=== PATIENT | male | born 1945 | race Caucasian/White ===

== ENCOUNTER 2020-08-29 06:28 | Observation (INO) | payer MEDICARE, OTHER ==
[2020-08-26 16:03] LABS: BASOPHILS # (AUTO) 0.1 (0.0-0.1); BASOPHILS % 1.1 % (0.0-1.0); EOSINOPHILS # (AUTO) 0.1 (0.0-0.4); EOSINOPHILS % 2.5 % (0.0-6.0); HEMATOCRIT 36.6 % (38.2-49.6); HEMOGLOBIN 12.2 g/dL (14.0-18.0); LYMPHOCYTES # (AUTO) 1.8 (1.0-3.2); LYMPHOCYTES % 33.7 % (18.0-39.1); MEAN CORPUSCULAR HEMOGLOBIN 34.9 pg (28-32); MEAN CORPUSCULAR HGB CONC 33.3 g/dL (31-35); MEAN CORPUSCULAR VOLUME 104.6 fL (81-99); MONOCYTES # (AUTO) 0.9 (0.2-0.8); MONOCYTES % 16.9 % (4.4-11.3); NEUTROPHILS # (AUTO) 2.4 (2.1-6.9); PLATELET COUNT 244 x10e3/uL (140-360); RED CELL DISTRIBUTION WIDTH 13.1 % (11.7-14.4)
[2020-08-26 16:20] LABS: INR 0.9; PROTHROMBIN TIME 12.6 seconds (11.9-14.5)
[2020-08-26 16:21] LABS: PARTIAL THROMBOPLASTIN TIME 29.7 seconds (23.8-35.5)
[2020-08-26 16:27] LABS: ANION GAP 16.9 mmol/L (8-16); CALCIUM 9.5 mg/dL (8.4-10.2); CREATININE, SERUM 1.23 mg/dL (0.72-1.25); POTASSIUM 4.9 mmol/L (3.5-5.1)
[~2020-08-29] VITALS: Ht 170.2 cm; Wt 75.3 kg
[~2020-08-29 06:28] MED LIST: ALENDRONATE SOD70 MG PO; ALLOPURINOL100 MG PO; AMLODIPINE BESY10 MG PO; ATORVASTATIN CA20 MG PO; AVODART0.5 MG PO; BENICAR20 MG PO; CETIRIZINE HCL10 MG PO; FLUTICASONE PRO16 GM INH; GLIMEPIRIDE2 MG PO; GLUCOSE4 GM PO; MYRBETRIQ25 MG PO; NASACORT16.9 ML INH; NEXIUM20 MG PO; TRESIBA FL200 UNIT/1 SC; ZETIA10 MG PO; [UNRECOGNIZED DRUG - OTHER]
[2020-08-29] MEDS ORDERED: LIDOCAINE 1% W/EPINEPHRINE 20 ML VIAL ONE (06:48)
[2020-08-29] MEDS ORDERED: THROMBIN FOR SOLN 5,000 UNIT VIAL ONE (06:48)
[2020-08-29] MEDS ORDERED: VANCOMYCIN HCL 1 GM VIAL ONE (06:48)
[2020-08-29] MEDS ORDERED: VANCOMYCIN 300 ML IV ONE (07:16)
[2020-08-29] MEDS ORDERED: LIDOCAINE HCL (LTA) 4 ML SOLN ONE (07:22)
[2020-08-29] MEDS ORDERED: IBUPROFEN 800MG/ 200ML 200 ML IV ONE (07:22)
[2020-08-29] MEDS ORDERED: CLINDAMYCIN 600MG / 50ML 50 ML IV ONE (08:58)
[2020-08-29] MEDS ORDERED: SODIUM CHLORIDE NS PRN (10:30)
[2020-08-29] MEDS ORDERED: OXYCODONE/ACETAMINOPHEN 5-325 1 EACH TABLET PO PRN (10:30)
[2020-08-29] MEDS ORDERED: MORPHINE SULFATE 5 MG/ML VIAL IM PRN (10:30)
[2020-08-29] MEDS ORDERED: FLUTICASONE PROPIONATE NASAL SPRAY NS PRN (10:30)
[2020-08-29] MEDS ORDERED: TRIAMCINOLONE ACETONIDE NS PRN (10:30)
[2020-08-29] MEDS ORDERED: CEPACOL SORE THROAT LOZENGES PO PRN (10:30)
[2020-08-29] MEDS ORDERED: ONDANSETRON HCL INJ 2MG/ML 2ML 2 MG/ML VIAL IV PRN (10:30)
[2020-08-29] MEDS ORDERED: PROMETHAZINE HCL (IM) 25 MG/ML VIAL IM PRN (10:30)
[2020-08-29] MEDS ORDERED: ACETAMINOPHEN 325 MG TAB PO PRN (10:30)
[2020-08-29] MEDS ORDERED: MAGNESIUM/ALUMINUM/SIMETHICONE 30 ML UDC PO PRN (10:30)
[2020-08-29] MEDS ORDERED: SODIUM BICARBONATE NS PRN (10:30)
[2020-08-29 11:59] VITALS: BP 125/77
[2020-08-29] MEDS ORDERED: GLYCOPYRROLATE INJ 0.2 MG/ML VIAL ONE (12:12)
[2020-08-29] MEDS ORDERED: PROPOFOL IV EMULSION 10 MG/ML 20 ML VIAL ONE (12:12)
[2020-08-29] MEDS ORDERED: NEOSTIGMINE 1 MG/ML 10ML VIAL ONE (12:12)
[2020-08-29] MEDS ORDERED: SEVOFLURANE INHAL SOLN 250 ML PEN BTL ONE (12:12)
[2020-08-29] MEDS ORDERED: ROCURONIUM BROMIDE 10 MG/ML 5ML VIAL IV ONE (12:12)
[2020-08-29] MEDS ORDERED: DEXAMETHASONE SOD PHOS INJ 4 MG/ML VIAL ONE (12:12)
[2020-08-29] MEDS ORDERED: ONDANSETRON HCL INJ 2MG/ML 2ML 2 MG/ML VIAL ONE (12:12)
[2020-08-29] MEDS ORDERED: LIDOCAINE HCL 2% JELLY 5 ML TUBE ONE (12:12)
[2020-08-29] MEDS ORDERED: LIDOCAINE HCL 2% LOCAL INJ 5 ML SDV VIAL INJ ONE (12:12)
[2020-08-29] MEDS: LACTATED RINGER'S 1,000 ML IV SCH (14:16)
[2020-08-29] MEDS: HYDROMORPHONE 2MG/ML 2 MG/ML ML IV PRN ×2 (14:23→20:28)
[2020-08-29 14:25] VITALS: BP 125/77
[2020-08-29 15:55] VITALS: BP 134/77
[2020-08-29] MEDS: CLINDAMYCIN 600MG / 50ML 50 ML IV SCH (17:12)
[2020-08-29] MEDS ORDERED: MIDAZOLAM HCL 2 MG/2 ML VIAL ONE (17:22)
[2020-08-29] MEDS ORDERED: FENTANYL CITRATE/PF 100MCG/2 ML INJ ONE (17:22)
[2020-08-29 20:01] VITALS: BP_SYST 126; BP_SYST 144; BP_DIAS 63; BP_DIAS 77
[2020-08-29 20:02] VITALS: BP 144/77
[2020-08-29] MEDS ORDERED: DEXTROSE 50% SYRINGE 50 ML IV PRN (20:30)
[2020-08-29] MEDS: INSULIN REGULAR, HUMAN 100 UNIT/1 ML 3ML VIAL SQ SCH (20:34)
[2020-08-29] MEDS ORDERED: ZOLPIDEM TARTRATE 5 MG TAB PO PRN (21:00)
[2020-08-29 23:55] VITALS: BP 138/87
[2020-08-30] MEDS: CLINDAMYCIN 600MG / 50ML 50 ML IV SCH ×2 (00:27→08:11)
[2020-08-30] MEDS: LACTATED RINGER'S 1,000 ML IV SCH (00:38)
[2020-08-30 04:20] VITALS: BP 156/86
[2020-08-30] MEDS ORDERED: NORCO 7.5-3251 EACH PO (07:28)
[2020-08-30] MEDS: INSULIN REGULAR, HUMAN 100 UNIT/1 ML 3ML VIAL SQ SCH (07:30)
[2020-08-30] MEDS ORDERED: GLIMEPIRIDE 2 MG TAB PO SCH (07:30)
[2020-08-30 08:02] VITALS: BP 148/69
[2020-08-30] MEDS ORDERED: DUTASTERIDE 0.5 MG CAP PO SCH (09:00)
[2020-08-30] MEDS ORDERED: NON-FORMULARY MEDICATION (Cetirizine Hcl 10 MG) PO SCH (09:00)
[2020-08-30] MEDS ORDERED: EZETIMIBE 10 MG TAB PO SCH (09:00)
[2020-08-30] MEDS ORDERED: PANTOPRAZOLE SOD 40 MG TABEC PO SCH (09:00)
[2020-08-30] MEDS ORDERED: INSULIN DEGLUDEC 36 UNIT SC SCH (09:00)
[2020-08-30] MEDS ORDERED: OLMESARTAN 20 MG TAB PO SCH (09:00)
[2020-08-30] MEDS ORDERED: (Mirabegron (Myrbetriq) 25 MG) PO SCH (09:00)
[2020-08-30] MEDS ORDERED: ALLOPURINOL 100 MG TAB PO SCH (09:00)
[2020-08-30] MEDS ORDERED: ATORVASTATIN 20 MG TAB PO SCH (09:00)
[2020-08-30] MEDS ORDERED: ATORVASTATIN 40 MG TAB PO SCH (09:00)
[2020-08-30] MEDS ORDERED: AMLODIPINE BESYLATE 10 MG TAB PO SCH (09:00)
[2020-08-30] MEDS ORDERED: LORATADINE 10 MG TAB PO SCH (09:00)
[2020-09-04] MEDS ORDERED: ALENDRONATE SODIUM 70 MG TAB PO SCH (06:30)
== END 2020-08-30 09:35 | disposition home or self-care (01) ==
LOC: OR 06:28 → PACU V 10:20 → MED/SURG 11:05
PROVIDERS: ADMIT Neurological Surgery; ATTEND Neurological Surgery
DX: M50.122 Cervical disc disorder at C5-C6 level with radiculopathy (principal); Z11.59 Encounter for screening for other viral diseases
CPT/HCPCS: 20931; 22551; 22845; 36415 ×3; 71046; 72040; 77003; 80048; 82948 ×2; 85025; 85610; 85730; 86850; 86900; 88304; 93005; C1713 ×2; G0378 ×2; J1100; J1170; J1817; J2001 ×2; J2250; J2405; J2704; J2710; J3010; J3370; J7121 ×2; S0164; U0002

== ENCOUNTER → 2020-09-26 | Outpatient (CLI) | payer MEDICARE ==
[~2020-09-26] MED LIST changes: +NORCO 7.5-3251 EACH PO
--- NOTE | 2020-09-26 10:36 | Diagnostic Imaging Report ---
Cervical spine, 4 views including flexion and extension INDICATION: ^[id number] ^EVALUATE FUSION STATUS Comparison: None available. Discussion: Postoperative changes from anterior fusion at the level of C5-6 is noted with intervertebral disc spacer. Bridging callus is identified overlying the fusion hardware. There is straightening of the normal cervical lordosis on neutral view. No evidence of malalignment on flexion or extension views. No abnormal prevertebral soft tissue thickening is noted. Disc-osteophyte complexes noted at C4-5 and C6-7. Within the upper mediastinum fractured sternotomy wires are noted. Soft tissues are unremarkable. IMPRESSION: Postoperative changes from anterior fusion at C5-6 without evidence of malalignment with flexion or extension. Bridging callus is identified overlying the fusion hardware. Signed by: Jose Armando Majano MD on 09/26/2020 10:33 AM
== END ==
LOC: RAD 08:42
PROVIDERS: ATTEND Neurological Surgery
DX: M50.20 Other cervical disc displacement, unspecified cervical region (principal); M43.22 Fusion of spine, cervical region
CPT/HCPCS: 72050

== ENCOUNTER → 2021-02-20 | Day surgery (SDC) | payer MEDICARE ==
[2021-02-11 14:26] LABS: BASOPHILS # (AUTO) 0.1 (0.0-0.1); BASOPHILS % 1.3 % (0.0-1.0); EOSINOPHILS # (AUTO) 0.2 (0.0-0.4); EOSINOPHILS % 3.8 % (0.0-6.0); HEMATOCRIT 38.5 % (38.2-49.6); HEMOGLOBIN 12.5 g/dL (14.0-18.0); LYMPHOCYTES # (AUTO) 2.4 (1.0-3.2); LYMPHOCYTES % 46.4 % (18.0-39.1); MEAN CORPUSCULAR HEMOGLOBIN 32.6 pg (28-32); MEAN CORPUSCULAR HGB CONC 32.5 g/dL (31-35); MEAN CORPUSCULAR VOLUME 100.3 fL (81-99); MONOCYTES # (AUTO) 0.7 (0.2-0.8); MONOCYTES % 13.9 % (4.4-11.3); NEUTROPHILS # (AUTO) 1.7 (2.1-6.9); NEUTROPHILS % 32.5 % (38.7-80.0); PLATELET COUNT 291 x10e3/uL (140-360); RED BLOOD COUNT 3.84 x10e6/uL (4.3-5.7); RED CELL DISTRIBUTION WIDTH 13.8 % (11.7-14.4)
[2021-02-11 14:38] LABS: INR 0.91; PROTHROMBIN TIME 12.8 seconds (11.9-14.5)
[2021-02-11 14:42] LABS: ANION GAP 17.2 mmol/L (8-16); CALCIUM 9.3 mg/dL (8.4-10.2); CREATININE, SERUM 1.6 mg/dL (0.72-1.25)
[2021-02-11 14:52] LABS: POTASSIUM 6.2 mmol/L (3.5-5.1)
[~2021-02-20] MED LIST changes: +BACTRIM DS TAB1 EACH PO; +BUPIVACAINE HCL 0.5% INJ 30 ML VIAL INJ ONE; +DEXAMETHASONE SOD PHOS INJ 4 MG/ML VIAL ONE; +FENTANYL CITRATE/PF 100MCG/2 ML INJ ONE; +FLONASE ALLERG9.9 ML INH; +HYDROCODON-ACE1 EA12 PO; +KETOROLAC TROMETHAMINE 30 MG/ML VIAL ONE; +LIDOCAINE HCL 2% LOCAL INJ 5 ML SDV VIAL INJ ONE; +MIDAZOLAM HCL 2 MG/2 ML VIAL ONE; +ONDANSETRON HCL INJ 2MG/ML 2ML 2 MG/ML VIAL ONE; +PROPOFOL IV EMULSION 10 MG/ML 20 ML VIAL ONE; +SEVOFLURANE INHAL SOLN 250 ML PEN BTL ONE; +VANCOMYCIN 1GM/NS 250 ML 250 ML ONE
[2021-02-20 09:50] VITALS: BP 141/68
== END | disposition home or self-care (01) ==
LOC: OR 06:10
PROVIDERS: ATTEND Neurological Surgery
DX: G56.02 Carpal tunnel syndrome, left upper limb (principal); M06.9 Rheumatoid arthritis, unspecified; G62.9 Polyneuropathy, unspecified; I25.10 Atherosclerotic heart disease of native coronary artery without angina pectoris; E78.5 Hyperlipidemia, unspecified; I10 Essential (primary) hypertension; E11.9 Type 2 diabetes mellitus without complications; Z88.0 Allergy status to penicillin; Z01.810 Encounter for preprocedural cardiovascular examination; Z01.812 Encounter for preprocedural laboratory examination; Z20.822 Contact with and (suspected) exposure to COVID-19; Z79.4 Long term (current) use of insulin; Z95.5 Presence of coronary angioplasty implant and graft
CPT/HCPCS: 36415 ×3; 64721; 80048; 82948; 84132; 85025; 85610; 85730; 93005; J1100; J1885; J2001; J2250; J2405; J2704; J3010; J3370; U0002 ×2